=== PATIENT | male | born 1965 | race Caucasian/White ===

== ENCOUNTER 2016-10-25 12:18 | Inpatient (IN) | payer MEDICAID ==
[2016-10-25 12:32] VITALS: BMI 33.4
[2016-10-25] MEDS ORDERED: Sodium Chloride 0.9% 500 ML IV STA (12:45)
[2016-10-25 12:54] LABS: BASO # 0.01 K/mm3 (0.0-2.0); BASO % 0.1 % (0.0-3.0); EOS # 0.1 (0.0-0.7); EOS % 0.4 % (1.5-5.0); GRAN # 12.03 (1.4-6.5); HEMOGLOBIN 16.4 gm/dL (14.0-18.0); LYMPH # 1.1 (1.2-3.4); LYMPH % 7.8 % (22.0-35.0); MEAN CORPUSCULAR HEMOGLOBIN 30.8 pg (25.0-35.0); MEAN CORPUSCULAR HGB CONC 36.2 g/dl (31.0-37.0); MEAN PLATELET VOLUME 8.8 fl (7.0-11.0); MONO % 6.7 % (1.0-6.0); PLATELET COUNT 158 10^3/uL (120.0-450.0); RBC 5.33 10^6/uL (3.5-6.1); RED CELL DISTRIBUTION WIDTH 12.3 % (11.5-14.5); WHITE BLOOD COUNT 14.2 10^3/ul (4.5-11.0)
[2016-10-25 13:04] LABS: ALB/GLOB RATIO 1.3 (1.1-1.8); ALBUMIN 4.4 g/dL (3.0-4.8); ALT/SGPT 50 U/L (7-56); AMYLASE 44 U/L (35-125); AST/SGOT 41 U/L (15-59); BLOOD UREA NITROGEN 19 mg/dL (7-21); GFR AFRICAN-AMERICAN > 60; GFR NON-AFRICAN AMERICAN > 60; INR 1.07 (0.93-1.08); LIPASE 85 U/L (23-300); PARTIAL THROMBOPLASTIN TIME 27.1 Seconds (23.7-30.8); PROTHROMBIN TIME 11.6 Seconds (9.9-11.8)
--- NOTE | 2016-10-25 13:05 | ED PDOC ---
Arrival/HPI - General Time Seen by Provider: 10/25/16 12:35 Historian: Patient - History of Present Illness Narrative History of Present Illness (Text): 10/25/16 12:57 Real Bah is a 51 year old male who presents to the emergency department of evaluation of sudden onset left upper abdominal pain radiating towards the left flank region. States that pain presented when he was lifting heavy objects at work. He has a history of renal colic in 2013 and reports that pain is similar to that episode. Patient has not urinated today. Patient went to PMD's office today morning immediately after pain presented, but she was not in her office. Denies any chest pain, shortness of breath, dizziness, lightheadedness, or any other complaints at this time. Time/Duration: 1-3 hours Symptom Onset: Sudden Symptom Course: Worsening Activities at Onset: Significant Context: Work Past Medical History - Provider Review Nursing Documentation Reviewed: Yes - Infectious Disease Hx of Infectious Diseases: None - Tetanus Immunization Tetanus Immunization: Unknown - Past Medical History Past Medical History: No Previous - Psychiatric Hx Substance Use: No - Past Surgical History Past Surgical History: No Previous - Suicidal Assessment Feels Threatened In Home Enviroment: No Family/Social History - Physician Review Nursing Documentation Reviewed: Yes Family/Social History: No Known Family HX Smoking Status: Never Smoked (occasional cigar) Hx Alcohol Use: No Hx Substance Use: No Hx Substance Use Treatment: No Allergies/Home Meds Allergies/Adverse Reactions: Allergies No Known Allergies Allergy (Verified 10/25/16 22:14) Home Medications: Home Meds Medication Instructions Recorded Confirmed No Known Home Med 10/25/16 10/25/16 Review of Systems - Review of Systems Constitutional: absent: Fatigue, Fevers Eyes: absent: Vision Changes ENT: absent: Hearing Changes Respiratory: absent: SOB, Cough, Sputum, Wheezing Cardiovascular: absent: Chest Pain, Palpitations, Edema, Calf Pain, DHILLON Gastrointestinal: Abdominal Pain (left upper quadrant pain ), Nausea. absent: Constipation, Diarrhea, Vomiting, Appetite Changes, Hematochezia, Hematemesis Genitourinary Male: absent: Dysuria, Frequency, Hematuria, Urinary Output Changes Musculoskeletal: absent: Arthralgias, Back Pain Skin: absent: Rash Neurological: absent: Headache, Dizziness, Focal Weakness Physical Exam - Physical Exam Narrative Physical Exam (Text): Head: Atraumatic. Normocephalic. Eyes: PERRL. EOMI. Conjunctivae are not pale. ENT: Mucous membranes are moist and intact. Oropharynx is clear and symmetric. Neck: Supple. Full ROM. No JVD. No lymphadenopathy. Cardiovascular: Regular rate. Regular rhythm. No murmurs, rubs, or gallops. Distal pulses are 2+ and symmetric. Pulmonary/Chest: No evidence of respiratory distress. Clear to auscultation bilaterally. No wheezing, rales or rhonchi. Abdominal: Soft and non-distended.. No rebound, guarding, or rigidity. No organomegaly. Good bowel sounds. Left Upper Quadrant pain to palpation. Umbilical hernia, soft and reducible. Back: No CVA tenderness. No midline tenderness. Extremities: No edema. No cyanosis. No clubbing. Full range of motion in all extremities. No calf tenderness. Skin: Pale and diaphoretic. Neurological: Alert, awake, and oriented. Motor and sensory exam intact. Psychiatric: Good eye contact. Normal interaction, affect, and behavior. Vital Signs Reviewed: Yes Vital Signs Temp Pulse Resp BP Pulse Ox 10/25/16 17:26 39 L 18 145/66 95 10/25/16 16:15 37 L 18 148/69 95 10/25/16 15:23 38 L 18 150/71 96 10/25/16 14:16 42 L 18 188/62 H 97 10/25/16 12:32 98.5 F 52 L 18 163/83 H 98 Temperature: Afebrile Blood Pressure: Normal Pulse: Bradycardic Respiratory Rate: Normal Appearance: Positive for: Non-Toxic, Ill-Appearing Pain Distress: Moderate Mental Status: Positive for: Alert and Oriented X 3 Finger Stick Blood Glucose: 138 Medical Decision Making ED Course and Treatment: 10/25/16 13:07 Impression: A 51 year old male who presents to the emergency department complaining LUQ abd pain radiating to Left flank region. Patient reports pain is similar to previous renal colic in 2014 Differential Diagnosis included but are not limited to: renal colic vs. colitis vs. CAD. High suspicion of kidney stones due to similarity in presentation of symptoms. Plan: -- CT abdomen pelvis -- EKG -- Labs, cardiac enzymes -- Chest X-ray -- IVF -- Toradol -- Urinalysis -- Reassess and disposition Progress Notes: Patient on arrival is found to be in severe pain, reports sudden onset. No chest pain or sob. He is noted to be bradycardic but denies any lightheadedness or dizzines. Not hypotensive. Reviewed previous vital signs from patient's last visit to er in 2013; noted to be bradycardic. Currently denies any chest pain, shortness of breath, lightheadedness, or dizziness. CT ordered for acute onset of upper abdominal pain. IV pain medication ordered. 10/25/16 15:18 CT Abdomen and Pelvis without intravenous contrast FINDINGS: LOWER THORAX: Cardiomegaly is noted with lung bases clear otherwise. LIVER: Unremarkable. No gross lesion or ductal dilatation. GALLBLADDER AND BILE DUCTS: Unremarkable. PANCREAS: Unremarkable. No gross lesion or ductal dilatation. SPLEEN: Unremarkable. ADRENALS: Unremarkable. No mass. KIDNEYS AND URETERS: There is an 8.0 x 6.1 mm calculus obstructing the proximal left ureter causing mild left hydronephrosis and limited left perinephric reaction. Multiple punctate intrarenal calculi scattered at the left greater than right kidney with no right-sided obstructive uropathy identified at this time. Left ureters otherwise unremarkable appearing in the urinary bladder is mildly distended but otherwise unremarkable as well. Small cysts is exophytic off the upper pole left kidney once again. VASCULATURE: Unremarkable. No aortic aneurysm. BOWEL: Small hiatal hernia is noted. Stomach is mildly seen with retained food Unremarkable. No obstruction. No gross mural thickening. APPENDIX: Unremarkable. Normal appendix. PERITONEUM: Unremarkable. No free fluid. No free air. LYMPH NODES: Unremarkable. No enlarged lymph nodes. BLADDER: Discussed above but nonacute. REPRODUCTIVE: Enlarged prostate gland. BONES: No acute fracture. OTHER FINDINGS: Umbilical hernia remains small but is increased in size compared to the prior CT noted above. Streaky changes seen the fat once again which are felt to be a chronic process. . IMPRESSION: 1. 8 mm calculus obstructs the proximal left ureter just distal to the UPJ causing mild left hydronephrosis including left perinephric reaction. Multiple punctate intrarenal calcified both kidneys better greater the left and right side with no right hydronephrosis identified. 2. Small exophytic cyst upper pole left kidney. 3. Small umbilical umbilical hernia is again appreciated but is increased in size somewhat. No bowel involvement is seen once again. On re-evaluation, pain persistent. Risks/side effects of iv narcotics reviewed with patient, iv morphine ordered, pain improved but persistent. Given size of stone and location, as well as persistent symptoms, will admit for urologic consultation, hydration. Will also monitor and evaluate patient's bradycardia. He denies taking any medication at home at this time. Umbilical hernia noted. Soft and reducible. - Lab Interpretations Lab Results: 10/25/16 12:49 10/25/16 12:49 Lab Results 10/25/16 14:27: Urine Color Yellow, Urine Appearance Clear, Urine pH 6.5, Ur Specific [place] 1.020, Urine Protein Trace H, Urine Glucose (UA) Negative, Urine Ketones 15 H, Urine Blood Large H, Urine Nitrate Negative, Urine Bilirubin Negative, Urine Urobilinogen 1.0 H, Ur Leukocyte Esterase Negative, Urine RBC 20 - 25, Urine WBC 0 - 2, Ur Epithelial Cells 0 - 2, Calcium Oxalate Crystal Occ, Urine Bacteria Rare 10/25/16 12:49: TSH 3rd Generation 1.86 10/25/16 12:49: Sodium 140, Potassium 3.9, Chloride 104, Carbon Dioxide 24, Anion Gap 16, BUN 19, Creatinine 1.1, Est GFR ( Amer) > 60, Est GFR (Non- Af Amer) > 60, Random Glucose 129 H, Calcium 11.0 H, Total Bilirubin 1.4 H, AST 41, ALT 50, Alkaline Phosphatase 83, Lactate Dehydrogenase 592, Total Creatine Kinase 300 H, CK-MB (CK-2) 6.6 H, CK-MB (CK-2) % 2.2 L, Troponin I < 0.01, Total Protein 8.0, Albumin 4.4, Globulin 3.5, Albumin/Globulin Ratio 1.3, Amylase 44, Lipase 85 10/25/16 12:49: PT 11.6, INR 1.07, APTT 27.1 10/25/16 12:49: WBC 14.2 H, RBC 5.33, Hgb 16.4, Hct 45.3, MCV 85.0, MCH 30.8, MCHC 36.2, RDW 12.3, Plt Count 158, MPV 8.8, Gran % 85.0 H, Lymph % (Auto) 7.8 L , [place] % (Auto) 6.7 H, Eos % (Auto) 0.4 L, Baso % (Auto) 0.1, Gran # 12.03 H, Lymph # 1.1 L, [place] # 1.0 H, Eos # 0.1, Baso # 0.01 - RAD Interpretation Radiology Orders: 10/25/16 12:44 ABD & PELVIS W/O PO OR IV CONT [CT] Stat 10/25/16 12:45 CHEST PORTABLE [RAD] Stat - Medication Orders Current Medication Orders: Sodium Chloride (Sodium Chloride 0.9%) 1,000 mls @ 125 mls/hr IV .Q8H [facility] Last Admin: 10/26/16 13:26 Dose: 125 mls/hr Sodium Chloride (Sodium Chloride 0.9%) 1,000 mls @ 75 mls/hr IV .[id number] [facility] Stop: 10/26/16 17:46 Morphine Sulfate (Morphine) 4 mg IVP Q4 PRN PRN Reason: Pain, severe (8-10) Morphine Sulfate (Morphine) 2 mg IVP Q15M PRN PRN Reason: Pain, moderate (4-7) Ondansetron HCl (Zofran Inj) 4 mg IVP Q4 PRN PRN Reason: Nausea/Vomiting Ondansetron HCl (Zofran Inj) 4 mg IVP ONCE PRN PRN Reason: Nausea/Vomiting Discontinued Medications Famotidine (Pepcid) 20 mg IVP STAT STA Stop: 10/25/16 15:52 Last Admin: 10/25/16 16:17 Dose: 20 mg Fentanyl (Fentanyl) Confirm Administered Dose 100 mcg .ROUTE .STK-MED ONE Stop: 10/26/16 15:43 Sodium Chloride (Sodium Chloride 0.9%) 500 mls @ 1,000 mls/hr IV .Q30M STA Stop: 10/25/16 13:14 Last Admin: 10/25/16 12:52 Dose: 1,000 mls/hr Sodium Chloride (Sodium Chloride 0.9%) 100 mls @ 125 mls/hr IV .Q48M [facility] Potassium Chloride (Potassium Chloride 10 Meq/100 Ml) 10 meq in 100 mls @ 100 mls/hr IVPB Q2H MAURISIO Stop: 10/26/16 13:29 Last Admin: 10/26/16 13:25 Dose: 100 mls/hr Iohexol (Omnipaque 240 (50 Ml)) Confirm Administered Dose 50 ml .ROUTE .STK-MED ONE Stop: 10/26/16 15:03 Ketorolac Tromethamine (Toradol) 30 mg IVP ONCE ONE Stop: 10/25/16 12:46 Last Admin: 10/25/16 12:51 Dose: 30 mg Ketorolac Tromethamine (Toradol) Confirm Administered Dose 30 mg .ROUTE .STK- MED ONE Stop: 10/25/16 12:50 Last Admin: 10/25/16 12:55 Dose: Lidocaine (Lidocaine (Bolus)) Confirm Administered Dose 100 mg .ROUTE .STK-MED ONE Stop: 10/26/16 15:43 Lidocaine HCl (Xylocaine 2% (Uro-Jet)) Confirm Administered Dose 1 ea .ROUTE .STK-MED ONE Stop: 10/26/16 15:03 Midazolam HCl (Versed Inj) Confirm Administered Dose 2 mg .ROUTE .STK-MED ONE Stop: 10/26/16 15:43 Morphine Sulfate (Morphine) 2 mg IVP STAT STA Stop: 10/25/16 13:32 Last Admin: 10/25/16 14:30 Dose: 2 mg Ondansetron HCl (Zofran Inj) Confirm Administered Dose 4 mg .ROUTE .STK-MED ONE Stop: 10/26/16 15:44 Pantoprazole Sodium (Protonix Inj) 40 mg IVP Q12 MAURISIO Last Admin: 10/25/16 22:49 Dose: 40 mg Pneumococcal Polyvalent Vaccine (Pneumovax 23 Vaccine) 0.5 ml IM .ONCE ONE Stop: 10/25/16 23:11 Propofol (Diprivan) Confirm Administered Dose 200 mg .ROUTE .STK-MED ONE Stop: 10/26/16 15:43 - Scribe Statement The provider has reviewed the documentation as recorded by the Panchito Phillips Provider Attestation: Provider Scribe Attestation: All medical record entries made by the Scribtim were at my direction and personally dictated by me. I have reviewed the chart and agree that the record accurately reflects my personal performance of the history, physical exam, medical decision making, and the department course for this patient. I have also personally directed, reviewed, and agree with the discharge instructions and disposition. Disposition/Present on Arrival - Present on Arrival Any Indicators Present on Arrival: No History of DVT/PE: No History of Uncontrolled Diabetes: No Urinary Catheter: No History Surgical Site Infection Following: None - Disposition Have Diagnosis and Disposition been Completed?: Yes Diagnosis: Renal colic, Kidney stone, Bradycardia Disposition: HOSPITALIZED Disposition Time: 15:00 Patient Plan: Admission Patient Problems: Current Active Problems Problem Status Onset Bradycardia Acute Kidney stone Acute Renal colic Acute Condition: FAIR
[2016-10-25 13:15] LABS: TROPONIN I < 0.01 ng/mL
[2016-10-25 13:19] LABS: CK MB% 2.2 % (2.5-3.0); CK-MB 6.6 ng/mL (0.0-3.6)
[2016-10-25] MEDS ORDERED: Morphine 2 mg/ml ISec IVP STA (13:31)
--- NOTE | 2016-10-25 13:57 | CT ---
PROCEDURE: CT Abdomen and Pelvis without intravenous contrast HISTORY: left sided abdominal pain COMPARISON: 02/23/[address] TECHNIQUE: Technique. Contrast Dose: None Radiation dose: Total exam DLP = 1178 mGy-cm. This CT exam was performed using one or more of the following dose reduction techniques: Automated exposure control, adjustment of the mA and/or kV according to patient size, and/or use of iterative reconstruction technique. FINDINGS: LOWER THORAX: Cardiomegaly is noted with lung bases clear otherwise. LIVER: Unremarkable. No gross lesion or ductal dilatation. GALLBLADDER AND BILE DUCTS: Unremarkable. PANCREAS: Unremarkable. No gross lesion or ductal dilatation. SPLEEN: Unremarkable. ADRENALS: Unremarkable. No mass. KIDNEYS AND URETERS: There is an 8.0 x 6.1 mm calculus obstructing the proximal left ureter causing mild left hydronephrosis and limited left perinephric reaction. Multiple punctate intrarenal calculi scattered at the left greater than right kidney with no right-sided obstructive uropathy identified at this time. Left ureters otherwise unremarkable appearing in the urinary bladder is mildly distended but otherwise unremarkable as well. Small cysts is exophytic off the upper pole left kidney once again. VASCULATURE: Unremarkable. No aortic aneurysm. BOWEL: Small hiatal hernia is noted. Stomach is mildly seen with retained food Unremarkable. No obstruction. No gross mural thickening. APPENDIX: Unremarkable. Normal appendix. PERITONEUM: Unremarkable. No free fluid. No free air. LYMPH NODES: Unremarkable. No enlarged lymph nodes. BLADDER: Discussed above but nonacute. REPRODUCTIVE: Enlarged prostate gland. BONES: No acute fracture. OTHER FINDINGS: Umbilical hernia remains small but is increased in size compared to the prior CT noted above. Streaky changes seen the fat once again which are felt to be a chronic process. . IMPRESSION: 1. 8 mm calculus obstructs the proximal left ureter just distal to the UPJ causing mild left hydronephrosis including left perinephric reaction. Multiple punctate intrarenal calcified both kidneys better greater the left and right side with no right hydronephrosis identified. 2. Small exophytic cyst upper pole left kidney. 3. Small umbilical umbilical hernia is again appreciated but is increased in size somewhat. No bowel involvement is seen once again.
--- NOTE | 2016-10-25 14:03 | RAD ---
HISTORY: left sided abdominal pain COMPARISON: No prior. FINDINGS: LUNGS: No active pulmonary disease. PLEURA: No significant pleural effusion identified, no pneumothorax apparent. CARDIOVASCULAR: Normal. OSSEOUS STRUCTURES: No significant abnormalities. VISUALIZED UPPER ABDOMEN: Normal. OTHER FINDINGS: None. IMPRESSION: No active disease.
[2016-10-25 14:45] LABS: PH,URINE 6.5 (4.7-8.0); URINE BILIRUBIN NEGATIVE (NEGATIVE); URINE BLOOD LARGE (NEGATIVE); URINE GLUCOSE (UA) NEGATIVE (NEGATIVE); URINE LEUKOCYTE ESTERASE NEGATIVE Leu/uL (NEGATIVE); URINE NITRATE NEGATIVE (NEGATIVE); URINE PROTEIN TRACE mg/dL (<30 mg/dL)
[2016-10-25 14:57] LABS: URINE APPEARANCE CLEAR (CLEAR); URINE COLOR YELLOW (YELLOW)
[2016-10-25 14:58] LABS: URINE BACTERIA RARE (NEG); URINE CALCIUM OXALATE CRYSTALS OCC /hpf; URINE EPITHELIAL CELLS 0 - 2 /hpf (0-5); URINE RBC 20 - 25 /hpf (0-2); URINE WBC 0 - 2 /hpf (0-6)
[2016-10-25] MEDS ORDERED: Sodium Chloride 0.9% 100 ML IV SCH (17:36)
[2016-10-25] MEDS ORDERED: Morphine 4 mg/ml ISec IVP PRN (17:36)
[2016-10-25] MEDS: Sodium Chloride 0.9% 1,000 ML IV SCH (19:28)
--- NOTE | 2016-10-25 20:26 | CP.PCM.HP ---
<GEE CARRASCO - Last Filed: 10/25/16 20:13> History of Present Illness - History of Present Illness History of Present Illness: Mr. Bah is a 51 year old male with a past medical history significant for renal colic/stones who presented to the [facility] ED with sudden onset left upper abdominal pain radiating towards the left flank region. 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 He had one episode of NBNB vomiting after the pain started. He has a history of renal colic in 2013 and reports that pain was similar to that episode. Patient went to PMD's office this morning immediately after pain presented, but she was not in her office. A CT abdomen pelvis done in the ED showed 8 mm calculus obstructs the proximal left ureter and a hiatal hernia, noted to be present on previous CT. An EKG showed sinus bradycardia but otherwise NSR. He was also given a 500ml bolus of NS, toradol and morphine in the ED. Currently, patient is still complaining of left sided flank pain/abdominal pain that has not changed in quality or presentation. He also complains of right sided chest pain that he describes as sharp in nature that doesn't radiate and that is reproducible on exam. He denies headache, fever, dizziness, shortness of breath, palpitations, N/V, constipation, diarrhea or any numbness/tingling/ weakness of any extremity. PMH: Renal Colic/Stone in 2013 PSH: none FAMHX: non-contributory SOCHX: No tobacco, no ETOH and no illicit drug use Allergies: NKDA Home medications: none Present on Admission - Present on Admission Any Indicators Present on Admission: No Review of Systems - Review of Systems Review of Systems: refer to HPI Past Patient History - Infectious Disease Hx of Infectious Diseases: None - Tetanus Immunizations Tetanus Immunization: Unknown - Past Social History Smoking Status: Never Smoked (occasional cigar) - PSYCHIATRIC Hx Substance Use: No Meds Allergies/Adverse Reactions: Allergies Allergy/AdvReac Type Severity Reaction Status Date / Time No Known Allergies Allergy Verified 10/25/16 22:14 Physical Exam - Constitutional Appears: No Acute Distress - Head Exam Head Exam: NORMAL INSPECTION - Eye Exam Eye Exam: EOMI, Normal appearance - ENT Exam ENT Exam: Mucous Membranes Moist, Normal Exam - Neck Exam Neck exam: Positive for: Full Rom - Respiratory Exam Respiratory Exam: Clear to Auscultation Bilateral, NORMAL BREATHING PATTERN. absent: Rales, Rhonchi, Wheezes, Respiratory Distress - Cardiovascular Exam Cardiovascular Exam: Bradycardia, REGULAR RHYTHM, +S1, +S2. absent: Diastolic murmur, Systolic Murmur Additional comments: Bradycardia in the 30's and 40's - GI/Abdominal Exam GI & Abdominal Exam: Hernia, Normal Bowel Sounds, Tenderness Additional comments: Umbilical hernia; LLQ and hypogastric TTP - Exam Exam: absent: Bladder Distension - Extremities Exam Extremities exam: Positive for: normal capillary refill, pedal pulses present. Negative for: calf tenderness, pedal edema - Neurological Exam Neurological exam: Alert, Oriented x3 - Psychiatric Exam Psychiatric exam: Normal Affect, Normal Mood - Skin Skin Exam: Dry, Intact, Normal Color, Warm Results - Vital Signs Recent Vital Signs: Last Vital Signs Temp 98.5 F 10/25/16 12:32 Pulse 39 L 10/25/16 17:26 Resp 18 10/25/16 17:26 BP 145/66 10/25/16 17:26 Pulse Ox 95 10/25/16 17:26 - Labs Result Diagrams: 10/25/16 12:49 10/25/16 12:49 Labs: Laboratory Results - last 24 hr 10/25/16 18:35 Troponin I < 0.01 Assessment & Plan - Assessment and Plan (Free Text) Assessment: Mr. Bah is a 51 year old male with a past medical history significant for renal colic/stones who presented to the [facility] ED with sudden onset left upper abdominal pain radiating towards the left flank region. Plan: 1. Renal Colic/8mm Stone of Left Distal Ureter -Urology consulted, all recommendations appreciated -Normal Saline at 125mls/hr -Morphine 4mg Q4 for pain control -urine straining 2. Chest Pain -cardiology consulted, all recommendations appreciated -CXR with no active disease -EKG with sinus bradycardia and NSR -serial troponins pending 3. Bradycardia -bradycardia into the 30's and 40's; noted to be similar on previous admissions -cardiology consulted, all recommendations appreciated -ECHO pending -TSH pending -vital signs 4. Umbilical Hernia -surgery consulted, all recommendations appreciated -will follow up with surgery team for management -NPO diet 5. GI/DVT Prophylaxis -protonix/scd's Patient seen and case discussed in detail with attending, Dr. Tinajero. - Date & Time Date: 10/25/16 Time: 05:30 Decision To Admit - Pt Status Changed To: Hospital Disposition Of: Inpatient Admission - Admit Certification Admit to Inpatient:: After my assessment, the patient will require hospitalization for at least two midnights. This is because of the severity of symptoms shown, intensity of services needed, and/or the medical risk in this patient being treated as an outpatient. - . Bed Request Type: Telemetry <Fina Tinajero MD - Last Filed: 10/26/16 15:22> Results - Vital Signs Recent Vital Signs: Last Vital Signs Temp 97.6 F 10/26/16 12:22 Pulse 19 L 10/26/16 12:22 Resp 41 H 10/26/16 12:22 BP 136/76 10/26/16 12:22 Pulse Ox 95 10/25/16 17:26 - Labs Result Diagrams: 10/26/16 07:30 10/26/16 07:30 Labs: Laboratory Results - last 24 hr 10/25/16 10/26/16 10/26/16 18:35 00:30 05:30 WBC RBC Hgb Hct MCV MCH MCHC RDW Plt Count MPV Gran % Lymph % (Auto) [place] % (Auto) Eos % (Auto) Baso % (Auto) Gran # Lymph # [place] # Eos # Baso # Sodium Potassium Chloride Carbon Dioxide Anion Gap BUN Creatinine Est GFR ( Amer) Est GFR (Non-Af Amer) Random Glucose Calcium Total Bilirubin AST ALT Alkaline Phosphatase Troponin I < 0.01 0.01 0.02 D Total Protein Albumin Globulin Albumin/Globulin Ratio 10/26/16 10/26/16 07:30 07:30 WBC 8.3 D RBC 4.91 Hgb 15.0 Hct 41.7 L MCV 84.9 MCH 30.5 MCHC 36.0 RDW 12.5 Plt Count 140 MPV 8.9 Gran % 65.9 Lymph % (Auto) 24.5 [place] % (Auto) 8.4 H Eos % (Auto) 1.1 L Baso % (Auto) 0.1 Gran # 5.48 Lymph # 2.0 [place] # 0.7 H Eos # 0.1 Baso # 0.01 Sodium 140 Potassium 3.3 L Chloride 107 Carbon Dioxide 23 Anion Gap 13 BUN 18 Creatinine 0.9 Est GFR ( Amer) > 60 Est GFR (Non-Af Amer) > 60 Random Glucose 87 Calcium 10.1 Total Bilirubin 1.4 H AST 27 ALT 38 Alkaline Phosphatase 62 Troponin I Total Protein 6.1 Albumin 3.4 Globulin 2.8 Albumin/Globulin Ratio 1.2 Attending/Attestation - Attestation I have personally seen and examined this patient.: Yes I have fully participated in the care of the patient.: Yes I have reviewed all pertinent clinical information: Yes Notes (Text): 10/26/16 15:17 Patient was seen and examined with medical practitioners. Agreed with resident assessment and plan. Mr. Bah is a 51 year old male with a past medical history significant for renal colic/stones who presented to the hospital with sudden onset left flank pain, found to have 8 mm left proximal ureter stone and mild left side hydronephrosis.Patient is also found to have Sinus bradycardia.He is asymptomatic. We will start patient on IV fluid, pain medications and will monitor in tele, we will check TSH level and will also get Urology evaluation. Management plan was discussed in detail with patient Education was provided. 10/26/16 15:19
--- NOTE | 2016-10-25 20:53 | CARD ---
APPROVED REPORT EKG Measurement Heart [id number] <Conclusion> Marked sinus bradycardia with marked sinus arrhythmia Nonspecific intraventricular conduction delay Abnormal ECG
--- NOTE | 2016-10-25 21:09 | CP.PCM.CON ---
History of Present Illness - History of Present Illness History of Present Illness: Consult Note for umbilical hernia General Surgery- Dr. Amaya 51M PMHx Renal colic since 2013, UMM presented to the ED with sudden onset left upper abdominal pain radiating towards the left flank region. He had one episode of NBNB vomiting after the pain started. Surgery was consulted for umbilical hernia seen on CT scan. Pt denies any abdominal pain, bloody BM.Denies FARIA SOB, palpitations, N/V. PMH: Renal Colic, diabetes mellitus PSH: none Allergies: NKDA SocialHx: No tobacco, no ETOH and no illicit drug use Past Patient History - Infectious Disease Hx of Infectious Diseases: None - Tetanus Immunizations Tetanus Immunization: Unknown - Past Social History Smoking Status: Never Smoked (occasional cigar) - PSYCHIATRIC Hx Substance Use: No Meds Allergies/Adverse Reactions: Allergies Allergy/AdvReac Type Severity Reaction Status Date / Time No Known Allergies Allergy Verified 10/25/16 22:14 - Medications Medications: Current Medications Sodium Chloride (Sodium Chloride 0.9%) 1,000 mls @ 125 mls/hr IV .Q8H [facility] Last Admin: 10/25/16 19:28 Dose: 125 mls/hr Morphine Sulfate (Morphine) 4 mg IVP Q4 PRN PRN Reason: Pain, severe (8-10) Ondansetron HCl (Zofran Inj) 4 mg IVP Q4 PRN PRN Reason: Nausea/Vomiting Physical Exam - Constitutional Appears: No Acute Distress - Head Exam Head Exam: ATRAUMATIC - Eye Exam Eye Exam: EOMI - Respiratory Exam Respiratory Exam: NORMAL BREATHING PATTERN. absent: Accessory Muscle Use, Wheezes, Respiratory Distress, Stridor - Cardiovascular Exam Cardiovascular Exam: Bradycardia, REGULAR RHYTHM, +S1, +S2 - GI/Abdominal Exam GI & Abdominal Exam: Hernia, Soft Additional comments: umbilical hernia - Neurological Exam Neurological exam: Alert, Oriented x3 - Psychiatric Exam Psychiatric exam: Normal Affect - Skin Skin Exam: Dry, Warm Results - Vital Signs Recent Vital Signs: Last Vital Signs Temp 98.5 F 10/25/16 12:32 Pulse 39 L 10/25/16 17:26 Resp 18 10/25/16 17:26 BP 145/66 10/25/16 17:26 Pulse Ox 95 10/25/16 17:26 - Labs Result Diagrams: 10/25/16 12:49 10/25/16 12:49 Labs: Laboratory Results - last 24 hr 10/25/16 18:35 Troponin I < 0.01 Assessment & Plan - Assessment and Plan (Free Text) Assessment: 51M w/ Renal colic, reducible umbilical hernia Plan: - medical management - urology recs - no surgical intervention at this time * f/u as outpatient for elective umbilical hernia repair, or if hernia becomes symptomatic d/w Dr. Jose Luis Lipscomb PGY1 - Date & Time Date: 10/25/16 Time: 06:30
[2016-10-25] MEDS ORDERED: Pneumococcal 23-Valent Vaccine IM ONE (23:10)
[2016-10-26 07:50] LABS: BASO # 0.01 K/mm3 (0.0-2.0); BASO % 0.1 % (0.0-3.0); EOS # 0.1 (0.0-0.7); EOS % 1.1 % (1.5-5.0); GRAN # 5.48 (1.4-6.5); GRAN % 65.9 % (50.0-68.0); LYMPH % 24.5 % (22.0-35.0); MEAN CELL VOLUME 84.9 fL (80.0-105.0); MEAN CORPUSCULAR HEMOGLOBIN 30.5 pg (25.0-35.0); MEAN PLATELET VOLUME 8.9 fl (7.0-11.0); MONO # 0.7 (0.1-0.6); MONO % 8.4 % (1.0-6.0); PLATELET COUNT 140 10^3/uL (120.0-450.0); RBC 4.91 10^6/uL (3.5-6.1); RED CELL DISTRIBUTION WIDTH 12.5 % (11.5-14.5); WHITE BLOOD COUNT 8.3 10^3/ul (4.5-11.0)
[2016-10-26 08:05] LABS: ALB/GLOB RATIO 1.2 (1.1-1.8); ALBUMIN 3.4 g/dL (3.0-4.8); ALT/SGPT 38 U/L (7-56); AST/SGOT 27 U/L (15-59); BLOOD UREA NITROGEN 18 mg/dL (7-21); CALCIUM 10.1 mg/dL (8.4-10.5); GFR AFRICAN-AMERICAN > 60; GFR NON-AFRICAN AMERICAN > 60
[2016-10-26] MEDS: Sodium Chloride 0.9% 1,000 ML IV SCH ×3 (08:49→21:36)
--- NOTE | 2016-10-26 12:03 | CARD ---
APPROVED REPORT EKG Measurement Heart [id number] OR [id number] <Conclusion> Marked sinus bradycardia Nonspecific T wave abnormality Abnormal ECG
[2016-10-26] MEDS ORDERED: Lidocaine 2% Jelly (Uro-Jet) ONE (15:02)
[2016-10-26] MEDS ORDERED: Iohexol 240 (50 ml) ONE (15:02)
--- NOTE | 2016-10-26 15:34 | CON ---
DATE: 10/26/2016 INDICATIONS: Bradyarrhythmia. HISTORY OF PRESENT ILLNESS: This is a 51-year-old man admitted to the emergency room yesterday when he presented with abdominal and left flank discomfort and was found to have a stone in his left proximal ureter. He has a history of renal stones and renal colic. His symptoms are similar to a prior episode of 2013. He was admitted to telemetry when he was found to have a bradycardia. While on telemetry, he has had sinus bradycardia with heart rate down into the 30s at times, mostly in the 40s. There is no dizziness, lightheadedness, chest pain, shortness of breath, orthopnea, PND, syncope, presyncope, lightheadedness, fever, chills, cough, sputum production, hemoptysis, nausea, vomiting, diarrhea, constipation or melena. PAST MEDICAL HISTORY: Notable for renal stones with an episode of renal colic in 2013. There was no cardiac history. He is not aware of any cardiac diagnosis, history of bradycardia or syncope in the past. There is no history of diabetes, hypertension, stroke, TIA, rheumatic fever, gout or arrhythmia. MEDICATIONS: At the time of admission, he was not taking any medications. He does not take a beta-millie or a drug with negative chronotropic properties. ALLERGIES: There are no medication allergies. SOCIAL HISTORY: He lives at home. He is a fashion merchandiser. He does not smoke. He does not drink. He does not use drugs. FAMILY HISTORY: Noncontributory. REVIEW OF SYSTEMS: A 10-point review of systems is otherwise unremarkable. PHYSICAL EXAMINATION GENERAL: He is a well developed man, lying in bed on telemetry, in no acute distress. VITAL SIGNS: Notable for sinus bradycardia 46 beats per minute. He is afebrile. Blood pressure 126/63, respirations 18 to 20, O2 sat 95% on room air. HEENT: No neck vein distention, thyromegaly or carotid bruits. Mucous membranes moist. Conjunctivae pink. NECK: Supple. LUNGS: Feels clear. HEART: Reveals normal first and second heart sounds without murmur, gallop, rub or click. ABDOMEN: Soft. Bowel sounds are present. No mass or organomegaly. Tenderness with rebound or guarding. This morning there was no abdominal pain. EXTREMITIES: Reveals no cyanosis, clubbing or edema. NEUROLOGIC: Awake, alert and oriented. PSYCHIATRIC: Normal as to mood and affect. SKIN: Warm and dry. No rash or cellulitis. LABORATORY AND IMAGING: A CT of the abdomen and pelvis is noted. It demonstrates an 8 mm calculus obstructing the proximal left ureter with mild left hydronephrosis. There was a cyst in the upper pole of the left kidney. There was a small umbilical hernia. EKG demonstrates sinus bradycardia at 46 beats per minute. There was left axis deviation, poor R wave progression, nonspecific ST wave changes. A chest x-ray reveals no active disease. White count is 14,200, repeat 8300; hemoglobin 16.4, repeat 15; hematocrit 45.3, repeat 41.7; platelet count normal. PT/INR and PTT normal. Electrolytes, BUN, creatinine unremarkable. Bilirubin 1.4, other LFTs unremarkable, CK 300. Four sets of troponins are negative. Repeat potassium this morning is 3.3, amylase is normal, lipase is normal, TSH is normal. Urine is abnormal as noted. ASSESSMENT AND PLAN: The patient is a 51-year-old man who has renal stones and recurrent renal colic. He was found to have bradycardia which is unexplained and is asymptomatic. He is undergoing surgical and urologic evaluation. We will continue telemetry. He can be out of bed and ambulate to see if his heart rate increases appropriately. I will get an echocardiogram. If he remains asymptomatic, no further cardiac inpatient intervention is required. An outpatient stress test would be appropriate and perhaps a 24-hour Holter monitor. I will discuss this case further with you. Claude Thao MD JOSEPH
[2016-10-26] MEDS ORDERED: Morphine 2 mg/ml ISec IVP PRN (15:40)
[2016-10-26] MEDS ORDERED: Midazolam 2 MG/2 ML VIAL ONE (15:42)
[2016-10-26] MEDS ORDERED: Propofol 10 mg/ml Inj (20 ML) ONE (15:42)
[2016-10-26] MEDS ORDERED: Sodium Chloride 0.9% 1,000 ML IV SCH (15:45)
--- NOTE | 2016-10-26 16:19 | CP.PCM.CON ---
Past Patient History - Infectious Disease Hx of Infectious Diseases: None - Tetanus Immunizations Tetanus Immunization: Unknown - Past Social History Smoking Status: Never Smoked (occasional cigar) - CARDIAC Hx Cardiac Disorders: No - PULMONARY Hx Respiratory Disorders: No - NEUROLOGICAL Hx Neurological Disorder: No - HEENT Hx HEENT Problems: No - RENAL Hx Chronic Kidney Disease: Yes Hx Kidney Stones: Yes (8 MM) - ENDOCRINE/METABOLIC Hx Endocrine Disorders: Yes Hx Diabetes Mellitus Type 2: Yes - HEMATOLOGICAL/ONCOLOGICAL Hx Blood Disorders: No - INTEGUMENTARY Hx Dermatological Problems: No - MUSCULOSKELETAL/RHEUMATOLOGICAL Hx Musculoskeletal Disorders: No Hx Falls: No - GASTROINTESTINAL Hx Gastrointestinal Disorders: Yes (REDUCIBLE UMBILICAL HERNIA) - GENITOURINARY/GYNECOLOGICAL Hx Genitourinary Disorders: Yes Hx Prostate Problems: Yes (BPH NO MEDS TAKEN) - PSYCHIATRIC Hx Substance Use: No - SURGICAL HISTORY Hx Surgeries: No Meds Allergies/Adverse Reactions: Allergies Allergy/AdvReac Type Severity Reaction Status Date / Time No Known Allergies Allergy Verified 10/25/16 22:14 - Medications Medications: Current Medications Sodium Chloride (Sodium Chloride 0.9%) 1,000 mls @ 125 mls/hr IV .Q8H [facility] Last Admin: 10/26/16 13:26 Dose: 125 mls/hr Sodium Chloride (Sodium Chloride 0.9%) 1,000 mls @ 75 mls/hr IV .[id number] [facility] Stop: 10/26/16 17:46 Morphine Sulfate (Morphine) 4 mg IVP Q4 PRN PRN Reason: Pain, severe (8-10) Morphine Sulfate (Morphine) 2 mg IVP Q15M PRN PRN Reason: Pain, moderate (4-7) Ondansetron HCl (Zofran Inj) 4 mg IVP Q4 PRN PRN Reason: Nausea/Vomiting Ondansetron HCl (Zofran Inj) 4 mg IVP ONCE PRN PRN Reason: Nausea/Vomiting Results - Vital Signs Recent Vital Signs: Last Vital Signs Temp 98.3 F 10/26/16 15:20 Pulse 42 L 10/26/16 15:20 Resp 12 10/26/16 15:20 BP 135/69 10/26/16 15:20 Pulse Ox 96 10/26/16 15:20 - Labs Result Diagrams: 10/26/16 07:30 10/26/16 07:30 Labs: Laboratory Results - last 24 hr 10/25/16 10/26/16 10/26/16 18:35 00:30 05:30 WBC RBC Hgb Hct MCV MCH MCHC RDW Plt Count MPV Gran % Lymph % (Auto) Perry % (Auto) Eos % (Auto) Baso % (Auto) Gran # Lymph # Perry # Eos # Baso # Sodium Potassium Chloride Carbon Dioxide Anion Gap BUN Creatinine Est GFR ( Amer) Est GFR (Non-Af Amer) Random Glucose Calcium Total Bilirubin AST ALT Alkaline Phosphatase Troponin I < 0.01 0.01 0.02 D Total Protein Albumin Globulin Albumin/Globulin Ratio 10/26/16 10/26/16 07:30 07:30 WBC 8.3 D RBC 4.91 Hgb 15.0 Hct 41.7 L MCV 84.9 MCH 30.5 MCHC 36.0 RDW 12.5 Plt Count 140 MPV 8.9 Gran % 65.9 Lymph % (Auto) 24.5 Perry % (Auto) 8.4 H Eos % (Auto) 1.1 L Baso % (Auto) 0.1 Gran # 5.48 Lymph # 2.0 Perry # 0.7 H Eos # 0.1 Baso # 0.01 Sodium 140 Potassium 3.3 L Chloride 107 Carbon Dioxide 23 Anion Gap 13 BUN 18 Creatinine 0.9 Est GFR ( Amer) > 60 Est GFR (Non-Af Amer) > 60 Random Glucose 87 Calcium 10.1 Total Bilirubin 1.4 H AST 27 ALT 38 Alkaline Phosphatase 62 Troponin I Total Protein 6.1 Albumin 3.4 Globulin 2.8 Albumin/Globulin Ratio 1.2 Assessment & Plan - Assessment and Plan (Free Text) Assessment: Imp: L renal colic, due to L upper ureteral stone Now pt is feeling well. Rec/plan: Cysto stent insertion, which was planned for this pm, now postponed in view of clinical status. p/rec: hydration, analgesics, strain urine, tamsulosin discussed w pt. Full note to be dictated. Thank you. Cinda Givens MD - Date & Time Date: 10/26/16 Time: 16:18
[2016-10-26 18:52] VITALS: RESP 20
--- NOTE | 2016-10-26 21:39 | CP.PCM.PN ---
<GEE CARRASCO - Last Filed: 10/26/16 21:34> Subjective - Date & Time of Evaluation Date of Evaluation: 10/26/16 Time of Evaluation: 10:30 - Subjective Subjective: Medicine Progress Note: Pt was seen and assessed at bedside. Pt states that his previous L flank and chest pain are well controlled. He reports no pain or discomfort with urination. No other complaints were presented at this time. Pt denies headache, dizziness, changes in vision, chest pain, shortness of breath, abdominal pain, or any urinary symptoms. Objective - Vital Signs/Intake and Output Vital Signs (last 24 hours): Temp Pulse Resp BP Pulse Ox 97.6 F 41 L 20 128/68 96 10/26/16 18:00 10/26/16 18:00 10/26/16 18:00 10/26/16 18:00 10/26/16 15:20 - Medications Medications: Current Medications Sodium Chloride (Sodium Chloride 0.9%) 1,000 mls @ 125 mls/hr IV .Q8H [facility] Last Admin: 10/26/16 13:26 Dose: 125 mls/hr Morphine Sulfate (Morphine) 4 mg IVP Q4 PRN PRN Reason: Pain, severe (8-10) Morphine Sulfate (Morphine) 2 mg IVP Q15M PRN PRN Reason: Pain, moderate (4-7) Ondansetron HCl (Zofran Inj) 4 mg IVP Q4 PRN PRN Reason: Nausea/Vomiting Ondansetron HCl (Zofran Inj) 4 mg IVP ONCE PRN PRN Reason: Nausea/Vomiting - Labs Labs: 10/26/16 07:30 10/26/16 07:30 PT 11.6 Seconds (9.9-11.8) 10/25/16 12:49 INR 1.07 (0.93-1.08) 10/25/16 12:49 APTT 27.1 Seconds (23.7-30.8) 10/25/16 12:49 - Constitutional Appears: No Acute Distress - Head Exam Head Exam: NORMAL INSPECTION, NORMOCEPHALIC - Eye Exam Eye Exam: EOMI, Normal appearance - ENT Exam ENT Exam: Mucous Membranes Moist, Normal Exam - Respiratory Exam Respiratory Exam: Clear to Ausculation Bilateral, NORMAL BREATHING PATTERN. absent: Rales, Rhonchi, Wheezes, Respiratory Distress - Cardiovascular Exam Cardiovascular Exam: Bradycardia, REGULAR RHYTHM, +S1, +S2 - GI/Abdominal Exam GI & Abdominal Exam: Normal Bowel Sounds. absent: Distended, Firm, Tenderness - Exam Exam: absent: Bladder Distension - Extremities Exam Extremities Exam: Normal Capillary Refill. absent: Calf Tenderness, Pedal Edema - Neurological Exam Neurological Exam: Alert, Awake, Oriented x3 - Psychiatric Exam Psychiatric exam: Normal Affect, Normal Mood - Skin Skin Exam: Dry, Intact, Normal Color, Warm Assessment and Plan - Assessment and Plan (Free Text) Assessment: Mr. Bah is a 51 year old male with a past medical history significant for renal colic/stones who presented to the [facility] [place] [facility] with sudden onset left upper abdominal pain radiating towards the left flank region. Plan: 1. Renal Colic/8mm Stone of Left Distal Ureter -Urology consulted, all recommendations appreciated -was originally scheduled for cystoscopy on 10/26; cancelled d/t clinical status of patient, per urology -start flomax, per urology -Normal Saline at 125mls/hr -Morphine 4mg Q4 for pain control -urine straining 2. Chest Pain -cardiology consulted, all recommendations appreciated -CXR with no active disease -EKG with sinus bradycardia and NSR -serial troponins negative x3 3. Bradycardia -bradycardia into the 30's and 40's; noted to be similar on previous admissions -cardiology consulted, all recommendations appreciated -HR appropriately elevated on ambulation -ECHO pending -TSH WNL -vital signs q6 -could be eligible for outpatient stress test and/or 24 hour holter monitor, per cardio 4. Umbilical Hernia -surgery consulted, all recommendations appreciated -no surgical intervention recommended at this time, per surgery -advance diet as tolerated 5. GI/DVT Prophylaxis -protonix/scd's Patient seen and case discussed in detail with attending, Dr. Tinajero. <Tanvi MORRIS,[facility] - Last Filed: 10/27/16 12:33> Objective - Vital Signs/Intake and Output Vital Signs (last 24 hours): Temp Pulse Resp BP Pulse Ox 98.2 F 56 L 20 129/87 100 10/27/16 06:00 10/27/16 10:00 10/27/16 06:00 10/27/16 06:00 10/27/16 06:00 Intake and Output: 10/27/16 10/27/16 06:59 18:59 Intake Total 1500 Output Total 600 Balance 900 - Medications Medications: Current Medications Sodium Chloride (Sodium Chloride 0.9%) 1,000 mls @ 125 mls/hr IV .Q8H [facility] Last Admin: 10/27/16 05:28 Dose: 125 mls/hr Morphine Sulfate (Morphine) 4 mg IVP Q4 PRN PRN Reason: Pain, severe (8-10) Morphine Sulfate (Morphine) 2 mg IVP Q15M PRN PRN Reason: Pain, moderate (4-7) Ondansetron HCl (Zofran Inj) 4 mg IVP Q4 PRN PRN Reason: Nausea/Vomiting Ondansetron HCl (Zofran Inj) 4 mg IVP ONCE PRN PRN Reason: Nausea/Vomiting - Labs Labs: 10/27/16 07:35 10/27/16 07:35 PT 11.6 Seconds (9.9-11.8) 10/25/16 12:49 INR 1.07 (0.93-1.08) 10/25/16 12:49 APTT 27.1 Seconds (23.7-30.8) 10/25/16 12:49 Attending/Attestation - Attestation I have personally seen and examined this patient.: Yes I have fully participated in the care of the patient.: Yes I have reviewed all pertinent clinical information, including history, physical exam and plan: Yes Notes (Text): 10/27/16 12:31 Patient was seen and examined with infertility medical assistant. Agreed with resident assessment and plan. Mr. Bah is a 51 year old male with a past medical history significant for renal colic/stones who was admitted to the hospital with sudden onset left flank pain, found to have 8 mm left proximal ureter stone and mild left side hydronephrosis.Patient was also found to have Sinus bradycardia.Patient flank pain has improved, bradycardia is better,TSH level is normal.Patient heart improved with walking.He is asymptomatic, We will follow up with Urology. Management plan was discussed in detail with patient Education was provided.
[2016-10-27] MEDS: Sodium Chloride 0.9% 1,000 ML IV SCH ×2 (05:28→14:52)
[2016-10-27 06:52] VITALS: O2SAT 100
[2016-10-27 07:44] LABS: BASO # 0.02 K/mm3 (0.0-2.0); BASO % 0.3 % (0.0-3.0); EOS # 0.2 (0.0-0.7); EOS % 1.9 % (1.5-5.0); GRAN # 4.56 (1.4-6.5); GRAN % 59.2 % (50.0-68.0); HEMOGLOBIN 15.5 gm/dL (14.0-18.0); LYMPH # 2.3 (1.2-3.4); LYMPH % 29.7 % (22.0-35.0); MEAN CELL VOLUME 85.9 fL (80.0-105.0); MEAN CORPUSCULAR HGB CONC 34.9 g/dl (31.0-37.0); MEAN PLATELET VOLUME 8.5 fl (7.0-11.0); MONO # 0.7 (0.1-0.6); MONO % 8.9 % (1.0-6.0); PLATELET COUNT 147 10^3/uL (120.0-450.0); RBC 5.17 10^6/uL (3.5-6.1); RED CELL DISTRIBUTION WIDTH 12.5 % (11.5-14.5); WHITE BLOOD COUNT 7.7 10^3/ul (4.5-11.0)
[2016-10-27 07:55] LABS: ALB/GLOB RATIO 1.1 (1.1-1.8); ALBUMIN 3.5 g/dL (3.0-4.8); ALT/SGPT 38 U/L (7-56); AST/SGOT 24 U/L (15-59); BLOOD UREA NITROGEN 18 mg/dL (7-21); GFR AFRICAN-AMERICAN > 60; GFR NON-AFRICAN AMERICAN > 60
--- NOTE | 2016-10-27 09:01 | RAD ---
HISTORY: R/O Kidney Path. COMPARISON: And pelvis CT 10/25/2016. FINDINGS: BOWEL: A nonobstructive bowel gas pattern is identified once again. Calcifications in the left flank air identified suspicious for intrarenal urolithiasis and possibly the right medially as well. No gross free intrarenal gas identified. [id number] fecal loading seen at the flank sections of the large bowel. Urinary bladder appears distended potentially. BONES: Degenerative spinal changes. OTHER FINDINGS: None. IMPRESSION: A nonobstructive bowel gas pattern is appreciated there is no gross free intrarenal gas. If clinical concern remains follow-up CT remains available for additional detailed evaluation.
[2016-10-27 12:48] VITALS: BP 131/75; TEMP 98.4
--- NOTE | 2016-10-27 14:16 | PN ---
DATE: 10/27/2016 SUBJECTIVE: The patient is seen lying in bed on telemetry. He appears more comfortable. He has had no back or flank pain. Conservative urologic management is advised at this time. He remains bradycardic, but asymptomatic. CURRENT MEDICATIONS: Include IV fluids and morphine p.r.n. OBJECTIVE: GENERAL: He is a middle-aged male, appears comfortable at rest. VITAL SIGNS: Blood pressure is 130/86 with a pulse of 40 to 50 in sinus, respirations are 16. He is afebrile. HEENT: No JVD. CHEST: Clear to auscultation and percussion. HEART: PMI in normal position. No pathological murmur or gallops noted. ABDOMEN: Soft and nontender with normoactive bowel sounds. EXTREMITIES: No edema. DIAGNOSTIC DATA: Potassium is 3.9, BUN and creatinine 18 and 0.8. White count of 7.7, hemoglobin and hematocrit 15.5 and 44.4 with platelet count of 147,000. IMPRESSION: 1. Renal colic with left upper ureteral stone, clinically improved. 2. Asymptomatic bradycardia, appears stable. No evidence of advanced atrioventricular block. RECOMMENDATIONS: From a cardiac standpoint, no further workup appears necessary at the present time. If any urologic intervention is necessary, intravenous atropine can be utilized as needed for any significant bradycardia. Outpatient followup will be arranged as needed. Scout Pradhan MD
[2016-10-27 15:45] VITALS: PULSE 64
--- NOTE | 2016-10-27 17:03 | CP.PCM.DIS ---
<Raudel Thapa - Last Filed: 10/27/16 16:51> Provider - Provider Date of Admission: 10/25/16 16:38 Attending physician: Fina Tinajero MD Primary care physician: Lawanda Jewell DO Consults: Nephrology, cardiology Time Spent in preparation of Discharge (in minutes): 45 Hospital Course - Lab Results Lab Results: Most Recent Lab Values WBC 7.7 10^3/ul (4.5-11.0) 10/27/16 07:35 RBC 5.17 10^6/uL (3.5-6.1) 10/27/16 07:35 Hgb 15.5 gm/dL (14.0-18.0) 10/27/16 07:35 Hct 44.4 % (42.0-52.0) 10/27/16 07:35 MCV 85.9 fL (80.0-105.0) 10/27/16 07:35 MCH 30.0 pg (25.0-35.0) 10/27/16 07:35 MCHC 34.9 g/dl (31.0-37.0) 10/27/16 07:35 RDW 12.5 % (11.5-14.5) 10/27/16 07:35 Plt Count 147 10^3/uL (120.0-450.0) 10/27/16 07:35 MPV 8.5 fl (7.0-11.0) 10/27/16 07:35 Gran % 59.2 % (50.0-68.0) 10/27/16 07:35 Lymph % (Auto) 29.7 % (22.0-35.0) 10/27/16 07:35 [place] % (Auto) 8.9 % (1.0-6.0) H 10/27/16 07:35 Eos % (Auto) 1.9 % (1.5-5.0) 10/27/16 07:35 Baso % (Auto) 0.3 % (0.0-3.0) 10/27/16 07:35 Gran # 4.56 (1.4-6.5) 10/27/16 07:35 Lymph # 2.3 (1.2-3.4) 10/27/16 07:35 [place] # 0.7 (0.1-0.6) H 10/27/16 07:35 Eos # 0.2 (0.0-0.7) 10/27/16 07:35 Baso # 0.02 K/mm3 (0.0-2.0) 10/27/16 07:35 PT 11.6 Seconds (9.9-11.8) 10/25/16 12:49 INR 1.07 (0.93-1.08) 10/25/16 12:49 APTT 27.1 Seconds (23.7-30.8) 10/25/16 12:49 Sodium 137 mmol/L (132-148) 10/27/16 07:35 Potassium 3.9 mmol/L (3.6-5.0) 10/27/16 07:35 Chloride 106 mmol/L (98-107) 10/27/16 07:35 Carbon Dioxide 24 mmol/L (21-33) 10/27/16 07:35 Anion Gap 11 (10-20) 10/27/16 07:35 BUN 18 mg/dL (7-21) 10/27/16 07:35 Creatinine 0.8 mg/dL (0.5-1.4) 10/27/16 07:35 Est GFR ( Amer) > 60 10/27/16 07:35 Est GFR (Non-Af Amer) > 60 10/27/16 07:35 Random Glucose 88 mg/dL (70-110) 10/27/16 07:35 Calcium 10.0 mg/dL (8.4-10.5) 10/27/16 07:35 Total Bilirubin 1.0 mg/dL (0.2-1.3) 10/27/16 07:35 AST 24 U/L (15-59) 10/27/16 07:35 ALT 38 U/L (7-56) 10/27/16 07:35 Alkaline Phosphatase 60 U/L (38-133) 10/27/16 07:35 Lactate Dehydrogenase 592 U/L (333-699) 10/25/16 12:49 Total Creatine Kinase 300 U/L (35-230) H 10/25/16 12:49 CK-MB (CK-2) 6.6 ng/mL (0.0-3.6) H 10/25/16 12:49 CK-MB (CK-2) % 2.2 % (2.5-3.0) L 10/25/16 12:49 Troponin I 0.02 ng/mL D 10/26/16 05:30 Total Protein 6.6 g/dL (5.8-8.3) 10/27/16 07:35 Albumin 3.5 g/dL (3.0-4.8) 10/27/16 07:35 Globulin 3.1 gm/dL 10/27/16 07:35 Albumin/Globulin Ratio 1.1 (1.1-1.8) 10/27/16 07:35 Amylase 44 U/L (35-125) 10/25/16 12:49 Lipase 85 U/L (23-300) 10/25/16 12:49 TSH 3rd Generation 1.86 mIU/mL (0.46-4.68) 10/25/16 12:49 Urine Color Yellow (YELLOW) 10/25/16 14:27 Urine Appearance Clear (CLEAR) 10/25/16 14:27 Urine pH 6.5 (4.7-8.0) 10/25/16 14:27 Ur Specific [place] 1.020 (1.005-1.035) 10/25/16 14:27 Urine Protein Trace mg/dL (<30 mg/dL) H 10/25/16 14:27 Urine Glucose (UA) Negative mg/dL (NEGATIVE) 10/25/16 14:27 Urine Ketones 15 mg/dL (NEGATIVE) H 10/25/16 14:27 Urine Blood Large (NEGATIVE) H 10/25/16 14:27 Urine Nitrate Negative (NEGATIVE) 10/25/16 14:27 Urine Bilirubin Negative (NEGATIVE) 10/25/16 14:27 Urine Urobilinogen 1.0 E.U./dL (<1 E.U./dL) H 10/25/16 14:27 Ur Leukocyte Esterase Negative Hayes/uL (NEGATIVE) 10/25/16 14:27 Urine RBC 20 - 25 /hpf (0-2) 10/25/16 14:27 Urine WBC 0 - 2 /hpf (0-6) 10/25/16 14:27 Ur Epithelial Cells 0 - 2 /hpf (0-5) 10/25/16 14:27 Calcium Oxalate Crystal Occ /hpf 10/25/16 14:27 Urine Bacteria Rare (NEG) 10/25/16 14:27 - Hospital Course Hospital Course: 51 year old male with a past medical history significant for renal colic/stones who [place] [facility] with sudden onset left upper abdominal pain radiating towards the left flank region. In the ED basic labwork was done. EKG showed 46bpm sinus deon and arrhythmia. CT abdomen showed L 8mm calculus obstructing the ureter just distal to UPJ causing mild hydro and an small umbilical hernia. Pain was controlled and pt was sent to the floor for closer observation. Surgery, cardiology, and urology was consulted. Urology recommended pain control and OR for stent placement. Cardiology recommended echo , and outpt follow up with stress test and 24 holter. Surgery recommend medical management for hernia. Pt was ready to got the OR but the patient started to feel drastically better. His pain had since much improved therefore OR was cancelled and pt was recommended by urology for outpt follow up, flomax for 15 days, and to strain his urine. Today his pain has since much improved. He denies any f/c, chest pain, sob, n/v, abd pain, flank pain, urinary or bm changes. Discharge Exam - Head Exam Head Exam: NORMAL INSPECTION, NORMOCEPHALIC - Eye Exam Eye Exam: EOMI, Normal appearance, PERRL Pupil Exam: Fixed - ENT Exam ENT Exam: Mucous Membranes Moist - Respiratory Exam Respiratory Exam: Clear to PA & Lateral. absent: Rales, Wheezes - Cardiovascular Exam Cardiovascular Exam: REGULAR RHYTHM, RRR, +S1, +S2 - GI/Abdominal Exam GI & Abdominal Exam: Normal Bowel Sounds, Soft. absent: Tenderness - Back Exam Back exam: absent: CVA tenderness (L) - Neurological Exam Neurological exam: Alert, CN II-XII Intact, Normal Gait, Oriented x3, Reflexes Normal - Psychiatric Exam Psychiatric exam: Normal Affect, Normal Mood - Skin Skin Exam: Dry, Intact, Normal Color, Warm Discharge Plan - Discharge Medications Prescriptions: oxyCODONE/Acetaminophen [Percocet 5/325 mg Tab] 1 ea PO Q6 PRN 3 Days PRN Reason: Pain, Severe (8-10) Tamsulosin [Flomax] 0.4 mg PO DAILY #15 cap - Follow Up Plan Condition: IMPROVED Disposition: HOME/ ROUTINE Patient education suggested?: Yes Instructions: Kidney Stones (DC), Renal Colic (GEN), Bradycardia (DC) Additional Instructions: Follow up with Dr. Givens in 2-3 days Follow up with your PMD with in 2-3 days. Strain your urine. Take your meds as prescribed. If your symptoms recur come back to the ED. Nursing See care notes provided for further instructions. If your symptoms return, return to the emergency room or call 911 Referrals: Lawanda Jewell DO [Primary Care Provider] - <Fina Tinajero MD - Last Filed: 10/28/16 10:52> Provider - Provider Date of Admission: 10/25/16 16:38 Attending physician: Fina Tinajero MD Primary care physician: Lawanda Jewell DO Hospital Course - Lab Results Lab Results: Most Recent Lab Values WBC 7.7 10^3/ul (4.5-11.0) 10/27/16 07:35 RBC 5.17 10^6/uL (3.5-6.1) 10/27/16 07:35 Hgb 15.5 gm/dL (14.0-18.0) 10/27/16 07:35 Hct 44.4 % (42.0-52.0) 10/27/16 07:35 MCV 85.9 fL (80.0-105.0) 10/27/16 07:35 MCH 30.0 pg (25.0-35.0) 10/27/16 07:35 MCHC 34.9 g/dl (31.0-37.0) 10/27/16 07:35 RDW 12.5 % (11.5-14.5) 10/27/16 07:35 Plt Count 147 10^3/uL (120.0-450.0) 10/27/16 07:35 MPV 8.5 fl (7.0-11.0) 10/27/16 07:35 Gran % 59.2 % (50.0-68.0) 10/27/16 07:35 Lymph % (Auto) 29.7 % (22.0-35.0) 10/27/16 07:35 [place] % (Auto) 8.9 % (1.0-6.0) H 10/27/16 07:35 Eos % (Auto) 1.9 % (1.5-5.0) 10/27/16 07:35 Baso % (Auto) 0.3 % (0.0-3.0) 10/27/16 07:35 Gran # 4.56 (1.4-6.5) 10/27/16 07:35 Lymph # 2.3 (1.2-3.4) 10/27/16 07:35 [place] # 0.7 (0.1-0.6) H 10/27/16 07:35 Eos # 0.2 (0.0-0.7) 10/27/16 07:35 Baso # 0.02 K/mm3 (0.0-2.0) 10/27/16 07:35 PT 11.6 Seconds (9.9-11.8) 10/25/16 12:49 INR 1.07 (0.93-1.08) 10/25/16 12:49 APTT 27.1 Seconds (23.7-30.8) 10/25/16 12:49 Sodium 137 mmol/L (132-148) 10/27/16 07:35 Potassium 3.9 mmol/L (3.6-5.0) 10/27/16 07:35 Chloride 106 mmol/L (98-107) 10/27/16 07:35 Carbon Dioxide 24 mmol/L (21-33) 10/27/16 07:35 Anion Gap 11 (10-20) 10/27/16 07:35 BUN 18 mg/dL (7-21) 10/27/16 07:35 Creatinine 0.8 mg/dL (0.5-1.4) 10/27/16 07:35 Est GFR ( Amer) > 60 10/27/16 07:35 Est GFR (Non-Af Amer) > 60 10/27/16 07:35 Random Glucose 88 mg/dL (70-110) 10/27/16 07:35 Calcium 10.0 mg/dL (8.4-10.5) 10/27/16 07:35 Total Bilirubin 1.0 mg/dL (0.2-1.3) 10/27/16 07:35 AST 24 U/L (15-59) 10/27/16 07:35 ALT 38 U/L (7-56) 10/27/16 07:35 Alkaline Phosphatase 60 U/L (38-133) 10/27/16 07:35 Lactate Dehydrogenase 592 U/L (333-699) 10/25/16 12:49 Total Creatine Kinase 300 U/L (35-230) H 10/25/16 12:49 CK-MB (CK-2) 6.6 ng/mL (0.0-3.6) H 10/25/16 12:49 CK-MB (CK-2) % 2.2 % (2.5-3.0) L 10/25/16 12:49 Troponin I 0.02 ng/mL D 10/26/16 05:30 Total Protein 6.6 g/dL (5.8-8.3) 10/27/16 07:35 Albumin 3.5 g/dL (3.0-4.8) 10/27/16 07:35 Globulin 3.1 gm/dL 10/27/16 07:35 Albumin/Globulin Ratio 1.1 (1.1-1.8) 10/27/16 07:35 Amylase 44 U/L (35-125) 10/25/16 12:49 Lipase 85 U/L (23-300) 10/25/16 12:49 TSH 3rd Generation 1.86 mIU/mL (0.46-4.68) 10/25/16 12:49 Urine Color Yellow (YELLOW) 10/25/16 14:27 Urine Appearance Clear (CLEAR) 10/25/16 14:27 Urine pH 6.5 (4.7-8.0) 10/25/16 14:27 Ur Specific [place] 1.020 (1.005-1.035) 10/25/16 14:27 Urine Protein Trace mg/dL (<30 mg/dL) H 10/25/16 14:27 Urine Glucose (UA) Negative mg/dL (NEGATIVE) 10/25/16 14:27 Urine Ketones 15 mg/dL (NEGATIVE) H 10/25/16 14:27 Urine Blood Large (NEGATIVE) H 10/25/16 14:27 Urine Nitrate Negative (NEGATIVE) 10/25/16 14:27 Urine Bilirubin Negative (NEGATIVE) 10/25/16 14:27 Urine Urobilinogen 1.0 E.U./dL (<1 E.U./dL) H 10/25/16 14:27 Ur Leukocyte Esterase Negative [place]/uL (NEGATIVE) 10/25/16 14:27 Urine RBC 20 - 25 /hpf (0-2) 10/25/16 14:27 Urine WBC 0 - 2 /hpf (0-6) 10/25/16 14:27 Ur Epithelial Cells 0 - 2 /hpf (0-5) 10/25/16 14:27 Calcium Oxalate Crystal Occ /hpf 10/25/16 14:27 Urine Bacteria Rare (NEG) 10/25/16 14:27 Attending/Attestation - Attestation I have personally seen and examined this patient.: Yes I have fully participated in the care of the patient.: Yes I have reviewed all pertinent clinical information, including history, physical exam and plan: Yes Notes (Text): 10/28/16 10:50 Patient was seen and examined with mobile paramedical examiner. Agreed with resident assessment and plan. Mr. Bah is a 51 year old male with a past medical history significant for renal colic/stones who was admitted to the hospital with sudden onset left flank pain, found to have 8 mm left proximal ureter stone and mild left side hydronephrosis.Patient was also found to have Sinus bradycardia.Patient flank pain has improved,Patient was evaluated by Urology, as her symptoms were improved, no plan for intervention as per Urology.Patient will follow up with Urology as out patient. Bradycardia is better,TSH level is normal.Patient heart improved with walking.He is asymptomatic, Patient Echo shows normal systolic function, no further inpatient work up is needed as per Cardiology, Patient will be discharged home and will follow up with PCP /Urology and cardiology. Management plan was discussed in detail with patient Education was provided.
--- NOTE | 2016-10-28 05:24 | CARD ---
APPROVED REPORT EXAM: Two-dimensional and M-mode echocardiogram with Doppler and color Doppler. INDICATION 2D DIMENSIONS IVSd1.5 (0.7-1.1cm)LVDd5.4 (3.9-5.9cm) PWd1.2 (0.7-1.1cm)LVDs2.9 (2.5-4.0cm) FS (%) 46.5 %LVEF (%)77.4 (>50%) M-Mode DIMENSIONS Left Atrium (MM)4.20 (2.5-4.0cm)Aortic Root3.80 (2.2-3.7cm) Aortic Cusp Exc.3.20 (1.5-2.0cm) Aortic Valve AoV Peak Jlcbnzlf129.0cm/Nohemi Peak GR.8mmHgAI P 1/2 Pyjs130gh Mitral Valve MV E Erxeiqvq69.8cm/sMV A Erevcang82.6cm/sE/A ratio0.8 TDI Lateral E' Peak V5.17cm/sMedial E' Peak V6.24cm/sE/Lateral E'10.2 E/Medial E'8.5 Tricuspid Valve TR Peak Lswlavlw107ud/sRAP [id number] Peak Gr.14mmHg [id number] LEFT VENTRICLE The left ventricle is normal size. There is mild concentric left ventricular hypertrophy. The left ventricular function is normal. The left ventricular ejection fraction is within the normal range. There is normal LV segmental wall motion. RIGHT VENTRICLE The right ventricle is normal size. The right ventricular systolic function is normal. ATRIA The left atrium is mildly dilated. The right atrium size is normal. The interatrial septum is intact with no evidence for an atrial septal defect. AORTIC VALVE The aortic valve is normal in structure. There is trace aortic regurgitation. There is no aortic valvular stenosis. MITRAL VALVE The mitral valve is normal in structure. There is no mitral valve regurgitation noted. TRICUSPID VALVE The tricuspid valve is normal in structure. There is trace tricuspid regurgitation. PULMONIC VALVE The pulmonary valve is normal in structure. GREAT VESSELS The aortic root is normal in size. The IVC is normal in size and collapses >50% with inspiration. PERICARDIAL EFFUSION There is no pleural effusion. There is no pericardial effusion. <Conclusion> Mildly dilated LA. Normal LV size and systolic function. Mild concentirc LVH.
--- NOTE | 2016-11-01 10:15 | CON ---
DATE: REQUESTING PHYSICIAN: Dr. Hernandez. REASON FOR CONSULTATION: Renal colic. HISTORY OF PRESENT ILLNESS: Mr. Bah is a 51-year-old male who presents with left flank pain. The patient is in otherwise good health. The patient developed left upper quadrant pain and left flank pain. He had severe pain on the day of admission. He presented to the emergency room. He had a CT scan which revealed an 8 mm obstructing left ureteral stone. The patient reports that he has had two previous episodes of renal colic. He reports he had passed the stone both times. The patient reports no fever. No hematuria. No nausea or vomiting. The patient does not smoke or drink. He reports he is otherwise well. No history of hypertension, diabetes, pneumonia, asthma, diverticulosis. The patient takes no medications. The patient reports his urine stream in good control. Allergies none. Mr. Bah reports that he is feeling well now. He has no further pain. I had brought the patient down to the operating room preop area for planned cystoscopy and stent insertion in view of the history of pain and of the radiologic findings. However, the patient is feeling well at present. PHYSICAL EXAMINATION: GENERAL: The patient is a well-developed, well-nourished middle-aged male. The patient is awake and alert. The patient is comfortable. ABDOMEN: Soft, nontender and nondistended. No mass or organomegaly. BACK: No CVA tenderness. IMPRESSION: Left renal colic. Left upper ureteral stone. RECOMMENDATIONS AND PLAN: I reviewed with the patient the findings and the options of therapy. I suggest the patient that he might require cystoscopy and stent insertion and further interventions of the stone, especially in view of its location and its size. However, the patient felt that he is feeling well at present and had avoid instrumentation for now. He is advised that he may require further instrumentation in the future if the stone is not passed. For now, the cystoscopy is canceled. I recommend hydration, analgesics, urine, and tamsulosin. The location of the stone and its size suggest that this conservative therapy may not be successful by itself. The patient is cleared of this possibility. Further therapy to follow the patient's clinical course. I discussed the plan with the nursing staff as well as with the patient as well as with the resident staff. Further therapy to follow according to the patient's clinical course. Thank you for recommending the patient for urology consultation. Cinda Givens MD
== END 2016-10-27 17:50 | disposition home or self-care (01) | DRG 323 ==
LOC: ED 12:18 → ERH 16:38 → 2RNO 18:44
PROVIDERS: ADMIT Internal Medicine; ATTEND Internal Medicine
DX: N13.2 Hydronephrosis with renal and ureteral calculous obstruction (principal); E11.22 Type 2 diabetes mellitus with diabetic chronic kidney disease; K42.9 Umbilical hernia without obstruction or gangrene; N18.9 Chronic kidney disease, unspecified; K44.9 Diaphragmatic hernia without obstruction or gangrene; N40.0 Benign prostatic hyperplasia without lower urinary tract symptoms; Z87.442 Personal history of urinary calculi; R00.1 Bradycardia, unspecified; N28.1 Cyst of kidney, acquired; R07.9 Chest pain, unspecified; Z53.9 Procedure and treatment not carried out, unspecified reason

== ENCOUNTER 2016-11-09 08:57 | Emergency (ER) | payer MEDICAID ==
[2016-11-09 09:19] VITALS: BMI 31.9
[2016-11-09 09:22] VITALS: RESP 18; TEMP 98.8
[2016-11-09] MEDS ORDERED: Morphine 4 mg/ml ISec IVP STA (10:00)
[2016-11-09] MEDS ORDERED: Sodium Chloride 0.9% 1,000 ML IV STA (10:03)
--- NOTE | 2016-11-09 10:13 | ED PDOC ---
Arrival/HPI - General Historian: Patient - History of Present Illness Time/Duration: < month Symptom Onset: Gradual Symptom Course: Worsening Quality: Burning, Throbbing Severity Level: Severe Activities at Onset: Rest <Paolo Hendricks - Last Filed: 11/09/16 15:03> <Hema Orantes - Last Filed: 11/09/16 16:51> - General Chief Complaint: Male Genitourinary Time Seen by Provider: 11/09/16 09:28 - History of Present Illness Narrative History of Present Illness (Text): 11/09/16 10:04 51yo M with PMHx of Kidney stones here for evaluation of left flank pain and cayetano-umbilical pain. Patient was at this hospital for similar complaints and was found to have a left proximal ureter 8mm calculus. He was scheduled to have an ureter stent placed however, the procedure was cancelled as the patient had relief of symptoms just prior to the procedure. Patient was discharged home at that time with urine strainer and flomax. Patient states that he has not noted any stones over the past two weeks and the pain has presisted and has gotten worse. He has not followed up with Dr. Chrystal Givens in his office. He does report fever 2 days ago. He states that he has been having nausea and vomiting for the past 4 days. Pain is located in the left flank and radiates to the left groin and suprapubic area. He also reports a periumbilical burning type of pain for the past 3 weeks which has gradually gotten worse. He states that he has noted an umbilical hernia for a few years, however, it has increased in size and has been burning for the past 3 weeks. He denies any SOB. Does report some chest pain. Denies any headaches. No Bowel changes. PMHx: Kidney Stones PSHx: Denies Social Hx: Denies Tobacco, Denies ETOH use, Denies any illicit drugs NKDA (Paolo Hendricks) Past Medical History - Provider Review Nursing Documentation Reviewed: Yes - Infectious Disease Hx of Infectious Diseases: None - Tetanus Immunization Tetanus Immunization: Unknown - Past Medical History Past Medical History: No Previous - Cardiac Hx Cardiac Disorders: No - Pulmonary Hx Respiratory Disorders: No - Neurological Hx Neurological Disorder: No - HEENT Hx HEENT Disorder: No - Renal Hx Renal Disorder: Yes Hx Kidney Stones: Yes (8 MM) - Endocrine/Metabolic Hx Endocrine Disorders: Yes Hx Diabetes Mellitus Type 2: Yes - Hematological/Oncological Hx Blood Disorders: No - Integumentary Hx Dermatological Disorder: No - Musculoskeletal/Rheumatological Hx Musculoskeletal Disorders: No Hx Falls: No - Gastrointestinal Hx Gastrointestinal Disorders: Yes (REDUCIBLE UMBILICAL HERNIA) - Genitourinary/Gynecological Hx Genitourinary Disorders: Yes Hx Prostate Problems: Yes (BPH NO MEDS TAKEN) - Psychiatric Hx Psychophysiologic Disorder: No Hx Substance Use: No - Past Surgical History Past Surgical History: No Previous - Anesthesia Hx Anesthesia: No - Suicidal Assessment Feels Threatened In Home Enviroment: No <Paolo Hendricks - Last Filed: 11/09/16 15:03> Family/Social History - Physician Review Nursing Documentation Reviewed: Yes Family/Social History: Unknown Family HX Smoking Status: Never Smoked Hx Alcohol Use: No Hx Substance Use: No Hx Substance Use Treatment: No <Paolo Hendricks - Last Filed: 11/09/16 15:03> Allergies/Home Meds <Paolo Hendricks - Last Filed: 11/09/16 15:03> <Hema Orantes - Last Filed: 11/09/16 16:51> Allergies/Adverse Reactions: Allergies No Known Allergies Allergy (Verified 11/09/16 09:19) Review of Systems - Physician Review All systems were reviewed & negative as marked: Yes - Review of Systems Constitutional: Fatigue, Fevers Eyes: Normal ENT: Normal Respiratory: absent: SOB Cardiovascular: Chest Pain. absent: Edema, Calf Pain Gastrointestinal: Abdominal Pain, Nausea, Vomiting <Paolo Hendricks - Last Filed: 11/09/16 15:03> Physical Exam Vital Signs Reviewed: Yes Temperature: Afebrile Blood Pressure: Normal Pulse: Bradycardic Respiratory Rate: Normal Appearance: Positive for: Ill-Appearing, Uncomfortable Pain Distress: Moderate Mental Status: Positive for: Alert and Oriented X 3 - Systems Exam Head: Present: Atraumatic, Normocephalic Extroacular Muscles: Present: EOMI Conjunctiva: Present: Normal Mouth: Present: Dry Respiratory/Chest: Present: Clear to Auscultation. No: Good Air Exchange, Respiratory Distress, Accessory Muscle Use, Wheezes Cardiovascular: Present: Normal S1, S2, Bradycardic. No: Murmurs Abdomen: Present: Tenderness, Hernias, Other (Umbilical hernia, non reducible, erythematous. tender to palpation. left flank pain). No: Distention Back: Present: CVA Tenderness (left sided CVA tenderness) Upper Extremity: Present: Normal Inspection, Normal ROM. No: Edema Lower Extremity: Present: Normal Inspection. No: Edema, CALF TENDERNESS Neurological: Present: GCS=15 Skin: Present: Warm, Dry, Normal Color Psychiatric: Present: Alert, Oriented x 3 <Paolo Hendricks - Last Filed: 11/09/16 15:03> Medical Decision Making <Paolo Hendricks - Last Filed: 11/09/16 15:03> <Hema Orantes - Last Filed: 11/09/16 16:51> ED Course and Treatment: 11/09/16 10:20 51yo M here with hx of left Ureter stone, unpassed. Non-reducible Umbilical hernia - Repeat CT ABD/Pelvis - CBC/CMP - Morphine - IVF - Zofran - Reassess and dispo 11/09/16 12:42 CT Abd/Pelvis reviewed by me. still has left hydro ureter, hydro nephrosis. Left ureter 8mm stone still present, however a bit more distal at this time (~4 cm from renal pelvis) - IV Toradol for pain management - Discussed case with Dr. Krishan Givens. States that he will discuss the case with Dr. Chrystal Givens (Urologist on previous admission) and call back with plan. 11/09/16 13:02 - Discussed case with Dr. Krishan Givens. He would recommend having the patient placed on pain medication and have him follow up with Dr. Chrystal Givens. He sates that Dr. Chrystal Givens has had conversations with the patient and is in contact with him. 11/09/16 14:03 - Discussed case with Dr. Garcia, Surgery. She agrees with plan. Have the patient follow up with her as out-patient for evaluation of the umbilical hernia as an elective procedure. Management of acute Renal colic at the moment. 11/09/16 14:42 - Discussed case with Dr. Chrystal Givens. He would like to take the patient for a Cysto w/ stent placement at a [facility] as an elective procedure on Saturday. He states that PO pain management over the weekend would suffice. Upon Reevaluation of the patient. Pain is now described as 1-2 on pain scale after receiving IV Toradol. 11/09/16 15:05 - Dr. Chrystal Givens states that he would like to have the patient follow up with him at [facility] on Saturday morning. He agrees with pain management over the weekend and recommends Cipro due to recent febrile episode. Patient has been provided direct number to Dr. Chrystal Givens. Instructed to contact Dr. Givens if he has increased pain or starts having febrile episodes again. Patient understands and agrees with plan. All questions and concerns addressed. (Paolo Hendricks) Patient was seen and evaluated with resident, came up with plan and treatment together. The pt appears well, no signs of infection/sepsis at this time. Pain improved with treatment. (Hema Orantes) - Lab Interpretations Lab Results: 11/09/16 10:15 11/09/16 10:15 Lab Results 11/09/16 12:56: Urine Color Yellow, Urine Appearance Clear, Urine pH 6.0, Ur Specific [place] 1.025, Urine Protein Trace H, Urine Glucose (UA) Negative, Urine Ketones 15 H, Urine Blood Moderate H, Urine Nitrate Negative, Urine Bilirubin Negative, Urine Urobilinogen 0.2, Ur Leukocyte Esterase Negative, Urine RBC 5 - 10, Urine WBC 0 - 2, Ur Epithelial Cells 0 - 2, Urine Bacteria Few 11/09/16 10:15: Sodium 138, Potassium 4.0, Chloride 101, Carbon Dioxide 24, Anion Gap 17, BUN 21, Creatinine 1.2, Est GFR ( Amer) > 60, Est GFR (Non- Af Amer) > 60, Random Glucose 109, Calcium 10.9 H, Total Bilirubin 1.2, AST 37, ALT 38, Alkaline Phosphatase 67, Total Protein 7.5, Albumin 4.4, Globulin 3.1, Albumin/Globulin Ratio 1.4 11/09/16 10:15: WBC 12.1 H D, RBC 5.13, Hgb 15.8, Hct 43.4, MCV 84.6, MCH 30.8, MCHC 36.4, RDW 12.1, Plt Count 174, MPV 8.7, Gran % 83.4 H, Lymph % (Auto) 9.4 L , [place] % (Auto) 7.0 H, Eos % (Auto) 0.1 L, Baso % (Auto) 0.1, Gran # 10.08 H, Lymph # 1.1 L, [place] # 0.8 H, Eos # 0.0, Baso # 0.01 - RAD Interpretation Radiology Orders: 11/09/16 10:00 ABD & PELVIS W/O PO OR IV CONT [CT] Stat - Medication Orders Current Medication Orders: Discontinued Medications Sodium Chloride (Sodium Chloride 0.9%) 1,000 mls @ 999 mls/hr IV .Q1H1M STA Stop: 11/09/16 11:03 Last Admin: 11/09/16 10:19 Dose: 999 mls/hr Ketorolac Tromethamine (Toradol) 30 mg IVP STAT STA Stop: 11/09/16 11:33 Last Admin: 11/09/16 12:02 Dose: 30 mg Morphine Sulfate (Morphine) 4 mg IVP STAT STA Stop: 11/09/16 10:01 Last Admin: 11/09/16 10:18 Dose: 4 mg Ondansetron HCl (Zofran Inj) 4 mg IVP STAT STA Stop: 11/09/16 10:01 Last Admin: 11/09/16 10:18 Dose: 4 mg - PA / SUPERVISOR LEAD REFINERY / Resident Statement FIGUEROA has reviewed & agrees with the documentation as recorded. MD/ has examined the patient and agrees with the treatment plan. <Paolo Hendricks - Last Filed: 11/09/16 15:03> - PA / SUPERVISOR LEAD REFINERY / Resident Statement FIGUEROA has reviewed & agrees with the documentation as recorded. / has examined the patient and agrees with the treatment plan. - Scribe Statement The provider has reviewed the documentation as recorded by the Scribe <Hema Orantes - Last Filed: 11/09/16 16:51> - Scribe Statement Demetra Freeman Provider Scribe Attestation: All medical record entries made by the Scribe were at my direction and personally dictated by me. I have reviewed the chart and agree that the record accurately reflects my personal performance of the history, physical exam, medical decision making, and the department course for this patient. I have also personally directed, reviewed, and agree with the discharge instructions and disposition. (Hema Orantes) Disposition/Present on Arrival - Present on Arrival Any Indicators Present on Arrival: No History of DVT/PE: No History of Uncontrolled Diabetes: No Urinary Catheter: No History of Decub. Ulcer: No History Surgical Site Infection Following: None - Disposition Have Diagnosis and Disposition been Completed?: Yes Disposition Time: 15:11 Patient Plan: Discharge <Paolo Hendricks - Last Filed: 11/09/16 15:03> <Hema Orantes - Last Filed: 11/09/16 16:51> - Disposition Diagnosis: Renal colic, Renal stone Disposition: HOME/ ROUTINE Patient Problems: Current Active Problems Problem Status Onset Renal colic Acute Renal stone Acute Condition: GOOD Discharge Instructions (ExitCare): Renal Colic (ED) Additional Instructions: 1. Follow up with Dr. Cinda Givens, Urology, on Sunday 11/12. Call with concerning symptoms. (Dr. Cinda Givens [phone]) 2. Take antibiotics as directed 3. Take pain meds as directed, as needed sparingly 4. Follow up with Dr. Garcia, Surgery. Call for appointment 5. Return to the ER with any concerning symptoms Prescriptions: Acetaminophen with Codeine [Tylenol with Codeine #3 Tablet] 1 each PO Q6 PRN # 10 tablet PRN Reason: Pain, Moderate (4-7) Ciprofloxacin [Cipro] 500 mg PO BID #14 tab Naproxen 500 mg PO Q8 PRN #21 tab PRN Reason: Pain, Mild (1-3) Referrals: Lawanda Jewell DO [Primary Care Provider] - Follow up with primary Cinda Givens MD [Staff Provider] - Follow up with primary Nataliia Garcia MD [Staff Provider] - Follow up with primary Forms: [employer] (Filipino), WORK NOTE
[2016-11-09 10:26] LABS: BASO # 0.01 K/mm3 (0.0-2.0); BASO % 0.1 % (0.0-3.0); EOS % 0.1 % (1.5-5.0); GRAN # 10.08 (1.4-6.5); GRAN % 83.4 % (50.0-68.0); HEMOGLOBIN 15.8 g/dL (14.0-18.0); LYMPH # 1.1 (1.2-3.4); LYMPH % 9.4 % (22.0-35.0); MEAN CELL VOLUME 84.6 fl (80.0-105.0); MEAN CORPUSCULAR HEMOGLOBIN 30.8 pg (25.0-35.0); MEAN CORPUSCULAR HGB CONC 36.4 g/dl (31.0-37.0); MEAN PLATELET VOLUME 8.7 fl (7.0-11.0); MONO # 0.8 (0.1-0.6); PLATELET COUNT 174 10^3/uL (120.0-450.0); RBC 5.13 10^6/uL (3.5-6.1); RED CELL DISTRIBUTION WIDTH 12.1 % (11.5-14.5); WHITE BLOOD COUNT 12.1 10^3/ul (4.5-11.0)
[2016-11-09 10:38] LABS: ALB/GLOB RATIO 1.4 (1.1-1.8); ALBUMIN 4.4 g/dL (3.0-4.8); ALT/SGPT 38 U/L (7-56); AST/SGOT 37 U/L (15-59); BLOOD UREA NITROGEN 21 mg/dL (7-21); CALCIUM 10.9 mg/dL (8.4-10.5); GFR AFRICAN-AMERICAN > 60; GFR NON-AFRICAN AMERICAN > 60
--- NOTE | 2016-11-09 11:46 | CT ---
PROCEDURE: CT Abdomen and Pelvis without intravenous contrast HISTORY: L renal calc. Umbilical hernia COMPARISON: None. TECHNIQUE: Technique. Contrast Dose: Radiation dose: Total exam DLP = 981 mGy-cm. This CT exam was performed using one or more of the following dose reduction techniques: Automated exposure control, adjustment of the mA and/or kV according to patient size, and/or use of iterative reconstruction technique. FINDINGS: LOWER THORAX: Unremarkable. LIVER: Unremarkable. No gross lesion or ductal dilatation. GALLBLADDER AND BILE DUCTS: Unremarkable. PANCREAS: Unremarkable. No gross lesion or ductal dilatation. SPLEEN: Unremarkable. ADRENALS: Unremarkable. No mass. KIDNEYS AND URETERS: Left hydronephrosis and hydroureter with a roughly 8 millimeter obstructive calculus in the mid left ureter. Additional bilateral nonobstructive renal calculi. No renal mass. VASCULATURE: Unremarkable. No aortic aneurysm. BOWEL: Unremarkable. No obstruction. No gross mural thickening. APPENDIX: Unremarkable. Normal appendix. PERITONEUM: Unremarkable. No free fluid. No free air. LYMPH NODES: Unremarkable. No enlarged lymph nodes. BLADDER: Unremarkable. REPRODUCTIVE: Unremarkable. BONES: No acute fracture. OTHER FINDINGS: Roughly 3 centimeter umbilical hernia containing omental fat with mild infiltration internally.. IMPRESSION: Left hydronephrosis and hydroureter with a roughly 8 millimeter obstructive calculus in the mid left ureter. Additional bilateral nonobstructive renal calculi. Roughly 3 centimeter umbilical hernia containing omental fat with mild infiltration internally..
[2016-11-09 13:39] LABS: URINE BILIRUBIN NEGATIVE (NEGATIVE); URINE BLOOD MODERATE (NEGATIVE); URINE GLUCOSE (UA) NEGATIVE (NEGATIVE); URINE LEUKOCYTE ESTERASE NEGATIVE Leu/uL (NEGATIVE); URINE NITRATE NEGATIVE (NEGATIVE); URINE PROTEIN TRACE mg/dL (<30 mg/dL); URINE UROBILINOGEN 0.2 E.U./dL (<1 E.U./dL)
[2016-11-09 13:40] LABS: URINE APPEARANCE CLEAR (CLEAR); URINE COLOR YELLOW (YELLOW)
[2016-11-09 13:53] LABS: URINE BACTERIA FEW (NEG); URINE EPITHELIAL CELLS 0 - 2 /hpf (0-5); URINE WBC 0 - 2 /hpf (0-6)
[2016-11-09 19:38] VITALS: BP 127/78; PULSE 56; O2SAT 97
== END 2016-11-09 16:30 | disposition home or self-care (01) ==
LOC: ED 08:57
DX: N20.0 Calculus of kidney (principal); E11.9 Type 2 diabetes mellitus without complications
CPT/HCPCS: 74176; 80053; 81001; 85025; 96374; 96375; 99285; J1885; J2270; J2405; J7040